=== PATIENT | female | born 1970 | race Native Hawaiian/Other Pacific Islander ===

== ENCOUNTER 2019-06-11 07:00 | Emergency (ER) | payer OTHER ==
--- NOTE | 2019-06-11 07:31 | Emergency Department Record ---
History of Present Illness - General Chief Complaint: Cough Stated Complaint: THINKS SHE HAS PNEUMONIA Time Seen by Provider: 06/11/19 07:14 Source: Patient, RN notes reviewed Mode of Arrival: Ambulatory - History of Present Illness Initial Comments: one week of congestion and cough and she had pneumonia 5 years ago. Patient is worried about pneumonia. MD Complaint: Cough, Nasal congestion Onset/Timin -: Week(s) Severity: Mild Severity scale (1-10): 3 Consistency: Constant - Related Data Previous Rx's Medication Instructions Recorded Albuterol Sulfate [Proair Hfa] 1 - 2 puff IH .EVERY 4-6 HOURS PRN 06/11/19 #1 inhaler Amoxicillin 500Mg Capsule [Amoxil] 500 mg PO TID #30 tab 06/11/19 Prednisone [Prednisone 20Mg] 20 mg PO BID #6 tab 06/11/19 Allergies Allergy/AdvReac Type Severity Reaction Status Date / Time decongestant Allergy RAPID Uncoded 06/11/19 07:16 HEART RATE Travel Screening - Travel/Exposure Within Last 30 Days Have you traveled within the last 30 days?: No Review of Systems Reviewed: No additional complaints except as noted below Constitutional: Reports: As per HPI. Denies: Chills, Fever, Malaise, Night sweats, Weakness, Weight change Eyes: Reports: As per HPI. Denies: Eye discharge, Eye pain, Photophobia, Vision change ENT: Reports: As per HPI, Congestion. Denies: Dental pain, Ear pain, Epistaxis, Hearing loss, Throat pain Respiratory: Reports: As per HPI, Cough. Denies: Dyspnea, Hemoptysis, Stridor, Wheezes Cardiovascular: Reports: As per HPI. Denies: Arrhythmia, Chest pain, Dyspnea on exertion, Edema, Murmurs, Orthopnea, Palpitations, Paroxysmal nocturnal dyspnea, Rheumatic Fever, Syncope Endocrine: Reports: As per HPI. Denies: Fatigue, Heat or cold intolerance, Polydipsia, Polyuria Gastrointestinal: Reports: As per HPI. Denies: Abdominal pain, Constipation, Diarrhea, Hematemesis, Hematochezia, Melena, Nausea, Vomiting Genitourinary: Reports: As per HPI. Denies: Abnormal menses, Discharge, Dyspareunia, Dysuria, Frequency, Hematuria, Incontinence, Retention, Urgency Musculoskeletal: Reports: As per HPI. Denies: Arthralgia, Back pain, Gout, Joint swelling, Myalgia, Neck pain Skin: Reports: As per HPI. Denies: Bruising, Change in color, Change in hair/nails, Lesions, Pruritus, Rash Neurological: Reports: As per HPI. Denies: Abnormal gait, Confusion, Headache, Numbness, Paresthesias, Seizure, Tingling, Tremors, Vertigo, Weakness Psychiatric: Reports: As per HPI. Denies: Anxiety, Auditory hallucinations, Depression, Homicidal thoughts, Suicidal thoughts, Visual hallucinations Hematological/Lymphatic: Reports: As per HPI. Denies: Anemia, Blood Clots, Easy bleeding, Easy bruising, Swollen glands Past Medical History - SOCIAL HISTORY Smoking Status: Former smoker Alcohol Use: None Drug Use: None - RESPIRATORY Hx Respiratory Disorders: No - CARDIOVASCULAR Hx Cardio Disorders: No - NEURO Hx Neuro Disorders: Yes Hx Headaches: Yes - GI Hx GI Disorders: No - Hx Genitourinary Disorders: No - ENDOCRINE Hx Endocrine Disorders: No - MUSCULOSKELETAL Hx Musculoskeletal Disorders: No - PSYCH Hx Psych Problems: No - HEMATOLOGY/ONCOLOGY Hx Hematology/Oncology Disorders: No Family Medical History Any Significant Family History?: Yes Hx Cancer: Mother, Grandparents Physical Exam - General General Appearance: Alert, Oriented x3, Cooperative, No acute distress - Head Head exam: Normal inspection - Eye Eye exam: Normal appearance, PERRL Pupils: Normal accommodation - ENT ENT exam: Normal exam, Mucous membranes moist, Normal external ear exam, Normal orophraynx, TM's normal bilaterally Ear exam: Normal external inspection. negative: External canal tenderness Nasal Exam: Sinus tenderness. negative: Discharge Mouth exam: Normal external inspection, Tongue normal Teeth exam: Normal inspection. negative: Dental caries Throat exam: Normal inspection. negative: Tonsillar erythema, Tonsillar exudate - Neck Neck exam: Normal inspection, Full ROM. negative: Tenderness - Respiratory Respiratory exam: Normal lung sounds bilaterally. negative: Respiratory d istress - Cardiovascular Cardiovascular Exam: Regular rate, Normal rhythm, Normal heart sounds - GI/Abdominal GI/Abdominal exam: Soft, Normal bowel sounds. negative: Tenderness - Rectal Rectal exam: Deferred - exam: Deferred - Extremities Extremities exam: Normal inspection, Full ROM, Normal capillary refill. negative: Tenderness - Back Back exam: Reports: Normal inspection, Full ROM. Denies: Muscle spasm, Rash noted, Tenderness - Neurological Neurological exam: Alert, Normal gait, Oriented X3, Reflexes normal - Psychiatric Psychiatric exam: Normal affect, Normal mood - Skin Skin exam: Dry, Intact, Normal color, Warm Course Vital Signs 06/11/19 07:07 Temperature 97.8 F Pulse Rate 74 Respiratory 20 Rate Blood Pressure 183/102 Pulse Ox 97 - Reevaluation(s) Reevaluation #1: 06/11/19 08:17 patient has an appointment with a primary Dr in 10 days and she will have her bp checked Medical Decision Making - Data Complexity MDM Data: Labs Ordered and/or Reviewed (wbc 7,400), X-Ray Ordered and/or Reviewed (negative chest xray) - Lab Data Result diagrams: 06/11/19 07:30 Disposition Clinical Impression: Bronchitis Disposition: Home, Self-Care Condition: (1) Good Instructions: Acute Bronchitis (ED) Additional Instructions: follow up with family Dr in 3 days fluids wait and see script on the amoxicillin for 3 days use inhaler albuterol take prednisone 20 mg twice a day Prescriptions: Amoxicillin 500Mg Capsule [Amoxil] 500 mg PO TID #30 tab Prednisone [Prednisone 20Mg] 20 mg PO BID #6 tab Albuterol Sulfate [Proair Hfa] 1 - 2 puff IH .EVERY 4-6 HOURS PRN #1 inhaler PRN Reason: Difficulty In Breathing Forms: Patient Portal Access Time of Disposition: 08:12 ( ) Quality - Quality Measures Quality Measures: N/A - Blood Pressure Screening Does Patient Have Any of the Following: No Blood Pressure Classification: Hypertensive Reading Systolic Measurement: 183 Diastolic Measurement: 102 Screening for High Blood Pressure: < First Hypertensive BP, F/U Documented > [G8950] First Hypertensive Follow-up Interventions: Referral to alternative/primary care provider.
[2019-06-11 07:35] LABS: ABSOLUTE NEUTROPHIL COUNT 4.94; BASO % 0.1 % (0-6); EOS % 4.7 % (0-6); GRAN % 66.4 % (47-80); HEMATOCRIT 38.1 % (35.0-47.0); HEMOGLOBIN 12.3 gm/dl (11.6-16.0); LYMPH % 19.9 % (16-45); MEAN CELL VOLUME 83.9 fl (81-97); MEAN CORPUSCULAR HEMOGLOBIN 27.1 pg (27-33); MEAN CORPUSCULAR HGB CONC 32.3 g/dl (32-36); MEAN PLATELET VOLUME 11.8 fl (7.4-10.4); MONO % 8.9 % (0-9); PLATELET COUNT 242 K/uL (130-400); RED BLOOD COUNT 4.54 M/uL (3.80-5.40); RED CELL DISTRIBUTION WIDTH 14.7 % (11.5-14.5); WHITE BLOOD COUNT W/O DIFF 7.4 K/uL (4.2-12.2)
--- NOTE | 2019-06-11 08:06 | RADIOLOGY REPORT ---
EXAMINATION: Two View Chest Radiographs EXAM DATE: 06/11/2019 8:02 AM TECHNIQUE: Frontal and lateral views INDICATION: cough COMPARISON: None ENCOUNTER: Not applicable FINDINGS: The lungs are clear without opacities, pneumothorax, or pleural effusion. The cardiomediastinal silho uette is normal in appearance. The soft tissues and osseous structures of the thorax are grossly norm al. IMPRESSION: No acute cardiopulmonary process. Dictated by: Jennie Eller DO on 06/11/2019 8:04 AM. .
== END 2019-06-11 08:37 | disposition home or self-care (01) ==
LOC: ER 07:00
DX: J20.9 Acute bronchitis, unspecified (principal); R03.0 Elevated blood-pressure reading, without diagnosis of hypertension; Z87.891 Personal history of nicotine dependence
CPT/HCPCS: 71046; 85025; 99283

== ENCOUNTER 2019-06-15 07:34 | Emergency (ER) | payer OTHER ==
--- NOTE | 2019-06-15 08:16 | Emergency Department Record ---
History of Present Illness - General Chief complaint: Flu Like Symptoms Stated complaint: VOMITING Time Seen by Provider: 06/15/19 07:38 Source: Patient, RN notes reviewed Mode of Arrival: Ambulatory - History of Present Illness Initial comments: patient has congestion and left sided pain under the left ear and vomiting mucous and under her left jaw. and she was seen here thursday with a diagnosis of viral bronchitis and given prednisone 20 mg bid for three days and a wait and see script of amoxil and she started that on (one day ago) and has had three doses of amoxil. Patient says the cough is better. She went to [place] and waited one hour and got impatient and drove to [facility] for evaluation. Onset/Timin -: Week(s) Location: Neck Severity scale (1-10): 7 Quality: Sharp Consistency: Constant Improves with: None Worsens with: None Context: Recent illness - Related Data Previous Rx's Medication Instructions Recorded Albuterol Sulfate [Proair Hfa] 1 - 2 puff IH .EVERY 4-6 HOURS PRN 06/11/19 #1 inhaler Amoxicillin 500Mg Capsule [Amoxil] 500 mg PO TID #30 tab 06/11/19 Ibuprofen [Motrin 600Mg] 600 mg PO Q6H #20 tablet 06/15/19 Ondansetron HCl [Zofran] 4 mg PO Q6HR #10 tablet 06/15/19 Allergies Allergy/AdvReac Type Severity Reaction Status Date / Time decongestant Allergy RAPID Uncoded 06/15/19 07:45 HEART RATE Travel Screening - Travel/Exposure Within Last 30 Days Have you traveled within the last 30 days?: No - Travel/Exposure Within Last Year Have you traveled outside the [place] in the last year?: No - Additonal Travel Details Have you been exposed to anyone with a communicable illness?: No - Travel Symptoms Symptom Screening: None Review of Systems Reviewed: No additional complaints except as noted below Constitutional: Reports: As per HPI. Denies: Chills, Fever, Malaise, Night sweats, Weakness, Weight change Eyes: Reports: As per HPI. Denies: Eye discharge, Eye pain, Photophobia, Vision change ENT: Reports: As per HPI, Congestion, Throat pain. Denies: Dental pain, Ear pain, Epistaxis, Hearing loss Respiratory: Reports: As per HPI. Denies: Cough, Dyspnea, Hemoptysis, Stridor, Wheezes Cardiovascular: Reports: As per HPI. Denies: Arrhythmia, Chest pain, Dyspnea on exertion, Edema, Murmurs, Orthopnea, Palpitations, Paroxysmal nocturnal dyspnea, Rheumatic Fever, Syncope Endocrine: Reports: As per HPI. Denies: Fatigue, Heat or cold intolerance, Polydipsia, Polyuria Gastrointestinal: Reports: As per HPI, Diarrhea, Vomiting. Denies: Abdominal pain, Constipation, Hematemesis, Hematochezia, Melena, Nausea Genitourinary: Reports: As per HPI. Denies: Abnormal menses, Discharge, Dys pareunia, Dysuria, Frequency, Hematuria, Incontinence, Retention, Urgency Musculoskeletal: Reports: As per HPI. Denies: Arthralgia, Back pain, Gout, Joint swelling, Myalgia, Neck pain Skin: Reports: As per HPI. Denies: Bruising, Change in color, Change in hair/nails, Lesions, Pruritus, Rash Neurological: Reports: As per HPI. Denies: Abnormal gait, Confusion, Headache, Numbness, Paresthesias, Seizure, Tingling, Tremors, Vertigo, Weakness Psychiatric: Reports: As per HPI. Denies: Anxiety, Auditory hallucinations, Depression, Homicidal thoughts, Suicidal thoughts, Visual hallucinations Hematological/Lymphatic: Reports: As per HPI. Denies: Anemia, Blood Clots, Easy bleeding, Easy bruising, Swollen glands Past Medical History - SOCIAL HISTORY Smoking Status: Former smoker Alcohol Use: Rare Drug Use: None - RESPIRATORY Hx Respiratory Disorders: No - CARDIOVASCULAR Hx Cardio Disorders: No - NEURO Hx Neuro Disorders: Yes Hx Headaches: Yes - GI Hx GI Disorders: No - Hx Genitourinary Disorders: No - ENDOCRINE Hx Endocrine Disorders: No - MUSCULOSKELETAL Hx Musculoskeletal Disorders: No - PSYCH Hx Psych Problems: No - HEMATOLOGY/ONCOLOGY Hx Hematology/Oncology Disorders: No Family Medical History Any Significant Family History?: Yes Hx Cancer: Mother, Grandparents Physical Exam - General General Appearance: Alert, Oriented x3, Cooperative, No acute distress - Head Head exam: Normal inspection - Eye Eye exam: Normal appearance, PERRL Pupils: Normal accommodation - ENT ENT exam: Normal exam, Mucous membranes moist, Normal external ear exam, Normal orophraynx, TM's normal bilaterally Ear exam: Normal external inspection. negative: External canal tenderness Nasal Exam: Normal inspection. negative: Discharge, Sinus tenderness Mouth exam: Normal external inspection, Tongue normal Teeth exam: Normal inspection. negative: Dental caries Throat exam: Tonsillar erythema. negative: Tonsillar exudate - Neck Neck exam: Normal inspection, Full ROM. negative: Tenderness - Respiratory Respiratory exam: Normal lung sounds bilaterally. negative: Respiratory distress - Cardiovascular Cardiovascular Exam: Regular rate, Normal rhythm, Normal heart sounds - GI/Abdominal GI/Abdominal exam: Soft, Normal bowel sounds. negative: Tenderness - Rectal Rectal exam: Deferred - exam: Deferred - Extremities Extremities exam: Normal inspection, Full ROM, Normal capillary refill. negative: Tenderness - Back Back exam: Reports: Normal inspection, Full ROM. Denies: Muscle spasm, Rash noted, Tenderness - Neurological Neurological exam: Alert, Normal gait, Oriented X3, Reflexes normal - Psychiatric Psychiatric exam: Normal affect, Normal mood - Skin Skin exam: Dry, Intact, Normal color, Warm Course Vital Signs 06/15/19 07:47 Temperature 98.4 F Pulse Rate 66 Respiratory 20 Rate Blood Pressure 197/106 Pulse Ox 98 - Reevaluation(s) Reevaluation #1: offered her pain medication and she said she wanted a shot 06/15/19 08:30 Reevaluation #2: lymphnodes are tender on palpation under the left ear and left jaw 06/15/19 08:54 Medical Decision Making - Data Complexity MDM Data: Labs Ordered and/or Reviewed (wbc 10,300 Hg 11.7, strep neg , mono neg flu neg) - Lab Data Result diagrams: 06/15/19 08:30 Disposition Clinical Impression: Pharyngitis Qualifiers: Pharyngitis/tonsillitis etiology: unspecified etiology Qualified Code(s): J02.9 - Acute pharyngitis, unspecified Disposition: Home, Self-Care Condition: (1) Good Instructions: Pharyngitis (ED), Viral Syndrome (ED) Additional Instructions: follow up with family Dr saleem felix till gone Prescriptions: Ondansetron HCl [Zofran] 4 mg PO Q6HR #10 tablet Ibuprofen [Motrin 600Mg] 600 mg PO Q6H #20 tablet Forms: Patient Portal Access Time of Disposition: 08:59 Quality - Quality Measures Quality Measures: N/A - Blood Pressure Screening Does Patient Have Any of the Following: No Blood Pressure Classification: Hypertensive Reading Systolic Measurement: 197 Diastolic Measurement: 106 Screening for High Blood Pressure: < First Hypertensive BP, F/U Documented > [G8950] First Hypertensive Follow-up Interventions: Referral to alternative/primary care provider.
[2019-06-15] MEDS ORDERED: KETOROLAC 60 MG/2 ML VIAL IM STA (08:18)
[2019-06-15 08:40] LABS: ABSOLUTE NEUTROPHIL COUNT 6.92; BASO % 0.2 % (0-6); EOS % 3.2 % (0-6); GRAN % 67.4 % (47-80); HEMATOCRIT 38.1 % (35.0-47.0); HEMOGLOBIN 11.7 gm/dl (11.6-16.0); LYMPH % 19.6 % (16-45); MEAN CELL VOLUME 85.8 fl (81-97); MEAN CORPUSCULAR HEMOGLOBIN 26.4 pg (27-33); MEAN CORPUSCULAR HGB CONC 30.7 g/dl (32-36); MEAN PLATELET VOLUME 12.3 fl (7.4-10.4); MONO % 9.6 % (0-9); PLATELET COUNT 234 K/uL (130-400); RED BLOOD COUNT 4.44 M/uL (3.80-5.40); WHITE BLOOD COUNT W/O DIFF 10.3 K/uL (4.2-12.2)
[2019-06-15 08:47] LABS: STREP A SCREEN NEGATIVE (NEGATIVE)
[2019-06-15 08:57] LABS: INFLUENZA A NEGATIVE (NEGATIVE); INFLUENZA B NEGATIVE (NEGATIVE)
== END 2019-06-15 09:13 | disposition home or self-care (01) ==
LOC: ER 07:34
DX: J02.9 Acute pharyngitis, unspecified (principal); H92.02 Otalgia, left ear; R11.10 Vomiting, unspecified; Z87.891 Personal history of nicotine dependence
CPT/HCPCS: 85025; 86308; 87400; 87880; 96372; 99284; J1885